=== PATIENT | male | born 1975 | race Caucasian/White ===

== ENCOUNTER 2019-07-02 10:50 | Day surgery (SDC) | payer BC ==
[~2019-07-02 10:50] MED LIST: Propofol 200 MG/20 ML SDV ONE
[2019-07-02] MEDS ORDERED: Sodium Chloride 0.9% 10 ML Syringe FLUSH PRN (11:00)
[2019-07-02] MEDS ORDERED: Lactated Ringers 1,000 ML IV SCH (11:00)
[2019-07-02] MEDS ORDERED: Propofol 200 MG/20 ML SDV ONE ×2 (11:49→12:28)
--- NOTE | 2019-07-02 11:51 | PCM.PN ---
- General Info Date of Service: 07/02/19 - Review of Systems Systems Review Comment:: 43-year-old male referred for colonoscopy. He has a history of colon polyps. He states his last colonoscopy was approximately 5 years ago. He denies any recent change in bowel pattern. He does admit that he will occasionally have hematochezia. I have discussed the proposed colonoscopy with the patient. Risks such as but not limited to bleeding and GI injury reviewed. He appears to understand and agrees to proceed. - Patient Data Vitals - Most Recent: Last Vital Signs Temp 98.8 F 07/02/19 11:18 Pulse 94 07/02/19 11:18 Resp 20 07/02/19 11:18 BP 128/83 07/02/19 11:18 Pulse Ox 99 07/02/19 11:18 Weight - Most Recent: 81.193 kg Med Orders - Current: Current Medications Lactated Ringer's (Ringers, Lactated) 1,000 mls @ 125 mls/hr IV ASDIRECTED DAKSHA Last Admin: 07/02/19 11:33 Dose: 125 mls/hr Sodium Chloride (Saline Flush) 10 ml FLUSH ASDIRECTED PRN PRN Reason: Keep Vein Open Discontinued Medications Propofol (Diprivan 20 Ml) Confirm Administered Dose 200 mg .ROUTE .STK-MED ONE Stop: 07/02/19 08:34 - Problem List Review Problem List Initiated/Reviewed/Updated: Yes - My Orders Last 24 Hours: My Active Orders 07/02/19 11:00 Patient Status [ADT] Routine Peripheral IV Care [RC] . DIRECTED Verify Patient Consent Obtain [RC] ASDIRECTED Lactated Ringers [Ringers, Lactated] 1,000 ml IV ASDIRECTED Sodium Chloride 0.9% [Saline Flush] 10 ml FLUSH ASDIRECTED PRN Peripheral IV Insertion Adult [OM.PC] Routine - Assessment Assessment:: history of colon polyps - Plan Plan:: colonoscopy
--- NOTE | 2019-07-02 12:28 | PCM.OPNOTE ---
- General Post-Op/Procedure Note Date of Surgery/Procedure: 07/02/19 Operative Procedure(s): Colonoscopy with polypectomy Findings: Small splenic flexure polyp Mild Sigmoid Diverticulosis Internal hemorrhoids Pre Op Diagnosis: history of colon polyps Post-Op Diagnosis: Colon Polyp. Sigmoid Diverticulosis. Internal Hemorrhoids Anesthesia Technique: MAC Primary Surgeon: Erick Fatima Pathology: Splenic flexure polyp EBL in mLs: 0 Complications: None Condition: Good
[2019-07-02 12:53] VITALS: BP 113/84
--- NOTE | 2019-07-02 17:16 | OR ---
Date of Procedure: 07/02/2019 PREOPERATIVE DIAGNOSIS: History of colon polyps. POSTOPERATIVE DIAGNOSES: Colon polyp, sigmoid diverticulosis, and internal hemorrhoids. OPERATIONS PERFORMED: Colonoscopy with polypectomy. INDICATIONS FOR SURGERY: This 43-year-old male has a known history of colon polyps and is seen today for surveillance colonoscopy. FINDINGS: A single polyp was noted today in the region of the splenic flexure. This a 6 mm semi-pedunculated polyp. There is a mild degree of sigmoid diverticulosis, which does not appear to be acutely inflamed. There are also small internal hemorrhoids. The colon otherwise appears normal. DESCRIPTION OF PROCEDURE: The patient was taken to the operating room. He was given intravenous sedation and with him in the left lateral decubitus position, digital rectal exam was performed showing no rectal masses. The Olympus colonoscope was inserted into the rectum. Retroflexed examination of the rectal canal was performed. The scope was carefully advanced under direct visualization through the entire length of the colon until the cecum was reached. Cecal acquisition was confirmed by noting the normal internal cecal anatomy including the appendiceal orifice and ileocecal valve. The light was also noted to transilluminate the abdominal wall in the right lower quadrant. The ileocecal valve was cannulated and the terminal ileum examined and appeared to be normal. The scope was slowly withdrawn sequentially re-examining the colonic segments until the entire colon and rectum had been fully examined. During withdrawal of the scope, the above-described polyp at the region of the splenic flexure was removed with a cautery snare. The polyp was retrieved. With no sign of bleeding or any other complication, the scope was removed, and the patient was taken from the operating room in satisfactory condition. ESTIMATED BLOOD LOSS: 0. COMPLICATIONS: None. PROGNOSIS: Good. COREY Fatima MD /[id number]
== END 2019-07-02 13:50 | disposition home or self-care (01) ==
LOC: LL.SDS 10:50
PROVIDERS: ATTEND Surgery
DX: K57.31 Diverticulosis of large intestine without perforation or abscess with bleeding (principal); K63.5 Polyp of colon; K64.8 Other hemorrhoids; K21.9 Gastro-esophageal reflux disease without esophagitis; Z86.010 Personal history of colon polyps; Z79.899 Other long term (current) drug therapy
CPT/HCPCS: J2704; J7120

== ENCOUNTER 2024-07-16 08:08 | Day surgery (SDC) | payer BC ==
[~2024-07-16 08:08] MED LIST changes: -Propofol 200 MG/20 ML SDV ONE; +Sodium Chloride 0.9% 10 ML Syringe FLUSH PRN
[2024-07-16] MEDS ORDERED: Propofol 200 MG/20 ML SDV ONE (08:14)
[2024-07-16] MEDS ORDERED: Midazolam 1 MG/ML 2 ML SDV ONE (08:14)
[2024-07-16] MEDS: Lactated Ringers 1,000 ML IV SCH (08:30)
[2024-07-16] MEDS ORDERED: Propofol 200 MG/20 ML SDV IV ONE (09:25)
[2024-07-16 10:07] VITALS: BP 109/76; PULSE 76
== END 2024-07-16 10:20 | disposition home or self-care (01) ==
LOC: LL.SDS 08:08
PROVIDERS: ATTEND Surgery
DX: Z12.11 Encounter for screening for malignant neoplasm of colon (principal); E78.5 Hyperlipidemia, unspecified; K21.9 Gastro-esophageal reflux disease without esophagitis; Z86.010 Personal history of colon polyps; Z79.899 Other long term (current) drug therapy
CPT/HCPCS: J2250; J2704; J7120